=== PATIENT | female | born 1970 | race American Indian/Alaskan Native ===

== ENCOUNTER 2017-05-22 12:06 | Emergency (ER) | payer SELFPAY ==
[~2017-05-22] VITALS: Ht 165.1 cm; Wt 61.2 kg
[2017-05-22 13:00] LABS: CHLORIDE 107 mEq/L (99-109); POTASSIUM 3.8 mEq/L (3.7-5.4); SODIUM 141 mEq/L (136-147)
[2017-05-22 13:01] LABS: GLUCOSE 111 mg/dL (70-99)
[2017-05-22 13:03] LABS: ANION GAP 7 MEQ/L (2-14)
[2017-05-22 13:06] LABS: UREA NITROGEN (BUN) 10 mg/dL (9-23)
[2017-05-22 13:07] LABS: GFR ESTIMATE (CALCULATED) > 59 mL/min/
[2017-05-22 13:13] LABS: HEMATOCRIT 32.8 % (36.0-46.0); MCH 20.2 PG (29.0-34.0); MCHC 30.8 G/DL (30.0-36.0); MCV 65.7 FL (83-99); MEAN PLAT.VOLUME 9.2 uM^3 (9.5-12.4); PLATELET COUNT 284 K/uL (156-360); QUANTITATIVE HCG < 4.0 MIU/ML; RBC DIS.WIDTH-CV 15.2 % (11.8-14.6); RBC DIS.WIDTH-SD 34.9 % (39-53); RED BLOOD COUNT 4.99 M/uL (3.80-5.20); WHITE BLOOD COUNT 8.2 K/uL (4.1-10.2)
[2017-05-22 14:05] VITALS: BP 99/73
== END 2017-05-22 14:14 | disposition home or self-care (01) ==
LOC: EME 12:06
PROVIDERS: Emergency Medicine
DX: N93.9 Abnormal uterine and vaginal bleeding, unspecified (principal); D64.9 Anemia, unspecified
CPT/HCPCS: 80048; 84702; 85027; 99281; 99284